=== PATIENT | male | born 1945 | race Caucasian/White ===

== ENCOUNTER → 2016-10-18 | Outpatient (CLI) | payer MEDICARE ==
--- NOTE | 2016-10-18 08:45 | US ---
EXAMINATION TYPE: US abdomen complete DATE OF EXAM: 10/18/2016 8:21 AM COMPARISON: 05/21/2015 CLINICAL HISTORY: 71-year-old male I71.4 ABDOMINAL AORTIC ANEURYSM, WITHOUT RUPTURE. FINDINGS: Liver Length: 15.3 cm Gallbladder Wall: 0.3 cm CBD: 0.4 cm Spleen: 12.2 cm Right Kidney: 10.9 x 5.1 x 5.0 cm Left Kidney: 12.4 x 6.1 x 6.1 cm Pancreas: Grossly unremarkable. Pancreatic tail suboptimally visualized. Liver: There is slight increased echogenicity. No focal lesion seen. Gallbladder: No abnormal gallbladder distention, wall thickening, pericholecystic fluid, or shadowin g calculi. Evidence for sonographic Aaron's sign: No CBD: Within normal limits Spleen: Within normal limits. Right Kidney: No hydronephrosis. 2 simple cysts cysts are present in the upper and mid pole, larger in the upper pole measuring 1.6 cm. Left Kidney: No hydronephrosis. A lateral mid to lower pole 1.5 cm cyst is seen. Upper IVC: Not well seen Abd Aorta: Proximally measures 3.1 x 3.3 cm. Previously measured at 2.7 cm on 05/21/2015. IMPRESSION: 1. Correlate for possible mild fatty infiltration of the liver. 2. The proximal abdominal aorta is measured at 3.3 cm which is mildly aneurysmal, previously measured at 2.7 cm.
== END | disposition home or self-care (01) ==
LOC: RADUSWWP 07:30
PROVIDERS: ATTEND Internal Medicine
DX: I71.4 Abdominal aortic aneurysm, without rupture (principal)
CPT/HCPCS: 76700

== ENCOUNTER → 2017-03-01 | Outpatient (CLI) | payer MEDICARE ==
--- NOTE | 2017-03-01 15:20 | CT ---
EXAMINATION TYPE: CT sinus wo con DATE OF EXAM: 03/01/2017 COMPARISON: NONE HISTORY: Patient complains of inability to breath through his nose. CT DLP: 685.4 mGycm. Automated Exposure Control for Dose Reduction was Utilized. TECHNIQUE: CT scan of the sinuses is performed without contrast, axial images are obtained, coronal r eformatted images are also reviewed. FINDINGS: There is extensive mucosal thickening involving the maxillary, frontal and ethmoid air cell s. Some of which appears hyperdense which may be related to hemorrhage or high proteinaceous secretio ns or fungus infection. There is a nasal septal deviation. Metallic density overlying the left orbit noted. Nasopharynx demonstrates asymmetry on the left which may be related to a mucosal lesion or polyp. The re does appear to be nodular densities within the nasal passage would also could represent retained s ecretions or a small polyp or mucous retention cyst.. The globes are intact bilaterally. Ostiomeatal complex is occluded bilaterally. IMPRESSION: 1. Extensive changes of chronic sinusitis with occlusion of ostiomeatal complex bilaterally. Asymmetr y of the left nasopharynx is noted within area of nodularity measuring 7 mm. Correlate clinically for possible mucosal lesion.
== END | disposition home or self-care (01) ==
LOC: RADCTMAIN 14:03
PROVIDERS: ATTEND Otolaryngology
DX: J32.9 Chronic sinusitis, unspecified (principal)
CPT/HCPCS: 70486

== ENCOUNTER → 2017-09-21 | Outpatient (CLI) | payer MEDICARE ==
--- NOTE | 2017-09-21 11:52 | US ---
EXAMINATION TYPE: US duplex aorta DATE OF EXAM: 09/21/2017 COMPARISON: US 10/18 CLINICAL HISTORY: I71.4 Abdominal aortic aneurysm, without rupture. EXAM MEASUREMENTS: Abdominal Aorta: Proximal: 2.6 x 2.2cm Mid: 2.2 x 2.1cm Distal: 2.0 x 2.0cm Bifurcation: 1.1cm and 1.2cm Some bowel gas overlying the proximal aorta, but otherwise the aorta is well visualized. While prior study placed greatest diameter at 3.3cm proximally and 2.7cm prior to that, today's scan has the gre atest proximal diameter at 2.6cm. No AAA seen. IMPRESSION: No sonographic evidence of abdominal aortic aneurysm on the current exam, which is target ed at the abdominal ultrasound and likely more accurate than the prior abdominal ultrasound. The larg est caliber of the proximal abdominal aorta measures 2.6 x 2.2 cm.
== END | disposition home or self-care (01) ==
LOC: RADUSWWP 10:10
PROVIDERS: ATTEND Internal Medicine
DX: I71.4 Abdominal aortic aneurysm, without rupture (principal)
CPT/HCPCS: 93979

== ENCOUNTER → 2021-07-14 | Outpatient (CLI) | payer MEDICARE ==
[2021-07-15 01:20] LABS: Basophils # (A) 0.04 X 10*3/uL (0.00-0.10); Basophils % (A) 0.6 %; Eosinophils # (A) 0.09 X 10*3/uL (0.04-0.35); Eosinophils % (A) 1.3 %; HCT 51.2 % (39.6-50.0); HGB 16.4 g/dL (13.0-17.0); Lymphocytes # (A) 1.48 X 10*3/uL (0.90-5.00); Lymphocytes % (A) 20.8 %; MCH 31.1 pg (27.0-32.0); Mean Platelet Volume 10.6 fL (9.5-12.2); Monocytes # (A) 0.83 X 10*3/uL (0.20-1.00); Monocytes % (A) 11.7 %; Neutrophils # (A) 4.66 X 10*3/uL (1.80-7.70); Neutrophils % (A) 65.3 %; Platelet Count 283 X 10*3/uL (140-440); RBC 5.28 X 10*6/uL (4.40-5.60); RDW 12.1 % (11.5-14.5); WBC 7.12 X 10*3/uL (4.50-10.00)
[2021-07-15 03:26] LABS: Ceruloplasmin 23.2 mg/dL (20.0-60.0)
[2021-07-15 03:46] LABS: Hepatitis C IgG Antibody Nonreactive (Nonreactive)
[2021-07-15 06:34] LABS: Hepatitis B Surface Antigen Nonreactive (Nonreactive)
[2021-07-15 08:49] LABS: % Iron Saturation 26.42 (15.00-50.00); African American GFR (CKD) 76.2 (60.0-200.0); Albumin 4.1 g/dL (3.8-4.9); Albumin/Globulin Ratio 1.41 (1.60-3.17); Anion Gap 17.1 mmol/L (10.00-18.00); BUN/Creat Ratio 17.55 Ratio (12.00-20.00); Blood Urea Nitrogen 19.3 mg/dL (9.0-27.0); Calcium 9.2 mg/dL (8.7-10.3); Carbon Dioxide 20.9 mmol/L (20.0-27.5); Ferritin 79.9 ng/mL (22.0-322.0); Globulin 2.9 g/dL (1.6-3.3); Non-African American GFR(CKD) 65.8 (60.0-200.0); Potassium 4.8 mmol/L (3.5-5.5); Total Bilirubin 0.3 mg/dL (0.30-1.20)
== END | disposition home or self-care (01) ==
LOC: LABWHC1 15:00
PROVIDERS: ATTEND Internal Medicine Gastroenterology
DX: R74.8 Abnormal levels of other serum enzymes (principal)
CPT/HCPCS: 36415; 80053; 82103; 82390; 82728; 83516; 83540; 83550; 84165; 85025; 86038; 86803; 87340